=== PATIENT | female | born 1995 | race Two or more races ===

== ENCOUNTER → 2023-05-07 | Outpatient (CLI) | payer BC ==
[2023-05-07 13:56] LABS: HEMATOCRIT 37.3 % (36.0-47.0); HEMOGLOBIN 11.9 g/dl (12.0-15.5); MEAN CORPUSCULAR HEMOGLOBIN 23.7 pg (27.0-33.0); MEAN CORPUSCULAR HGB CONC 31.9 g/dl (32.0-36.5); MEAN CORPUSCULAR VOLUME 74.2 fl (80.0-96.0); PLATELET COUNT, AUTOMATED 326 10^3/uL (150-450); RED BLOOD COUNT 5.03 10^6/uL (4.00-5.40); WHITE BLOOD COUNT 8.2 10^3/uL (4.0-10.0)
[2023-05-07 14:19] LABS: TOTAL PROTEIN,RANDOM URINE 7.7 MG/DL (0.0-14.0)
[2023-05-07 14:26] LABS: URIC ACID 3.1 MG/DL (3.1-7.8)
[2023-05-07 14:28] LABS: LDH LACTATE DEHYDROGENASE 193 U/L (120-246)
[2023-05-07 14:29] LABS: ALT/SGPT 13 U/L (7.0-40); AST/SGOT 17 U/L (<34); CREATININE FOR GFR 0.57 MG/DL (0.55-1.30); GLOMERULAR FILTRATION RATE > 60.0 (>60)
[2023-05-07 14:36] LABS: CREATININE,RANDOM URINE 316.2 MG/DL
[2023-05-07 14:52] LABS: HIV 1&2 SCREEN NEGATIVE (NEGATIVE)
[2023-05-07 15:01] LABS: HEPATITIS C VIRUS ABY INDEX 0.06 INDEX (<0.8)
[2023-05-07 15:40] LABS: GC DNA AMPLIFICATION NEGATIVE (NEGATIVE)
== END ==
LOC: M PLALAB 10:54
PROVIDERS: ATTEND Obstetrics & Gynecology
DX: O09.811 Supervision of pregnancy resulting from assisted reproductive technology, first trimester (principal); Z3A.00 Weeks of gestation of pregnancy not specified

== ENCOUNTER → 2023-06-10 | Outpatient (REF) | payer BC | LOC: M SFHCWAGY 15:35 | PROVIDERS: ATTEND Specialist | DX: Z34.82 Encounter for supervision of other normal pregnancy, second trimester (principal) ==

== ENCOUNTER → 2023-07-02 | Outpatient (CLI) | payer BC | LOC: M WHC 12:03 | PROVIDERS: ATTEND Specialist | DX: Z34.82 Encounter for supervision of other normal pregnancy, second trimester (principal); Z3A.19 19 weeks gestation of pregnancy ==

== ENCOUNTER → 2023-07-29 | Outpatient (CLI) | payer BC | LOC: M WHC 07:49 | PROVIDERS: ATTEND Obstetrics & Gynecology | DX: Z36.2 Encounter for other antenatal screening follow-up (principal) ==

== ENCOUNTER → 2023-08-08 | Outpatient (REF) | payer BC ==
[2023-08-08 14:51] LABS: CHLAMYDIA DNA AMPLIFICATION NEGATIVE (NEGATIVE); GC DNA AMPLIFICATION NEGATIVE (NEGATIVE)
== END ==
LOC: M SFHCWAGY 12:43
PROVIDERS: ATTEND Advanced Practice Midwife
DX: Z34.92 Encounter for supervision of normal pregnancy, unspecified, second trimester (principal)

== ENCOUNTER → 2023-08-28 | Outpatient (CLI) | payer BC ==
[2023-08-28 10:25] LABS: HEMATOCRIT 31.5 % (36.0-47.0); HEMOGLOBIN 9.9 g/dl (12.0-15.5); MEAN CORPUSCULAR HEMOGLOBIN 23.8 pg (27.0-33.0); MEAN CORPUSCULAR HGB CONC 31.4 g/dl (32.0-36.5); MEAN CORPUSCULAR VOLUME 75.7 fl (80.0-96.0); PLATELET COUNT, AUTOMATED 308 10^3/uL (150-450); RED BLOOD COUNT 4.16 10^6/uL (4.00-5.40)
== END ==
LOC: M PLALAB 08:55
PROVIDERS: ATTEND Advanced Practice Midwife
DX: Z34.92 Encounter for supervision of normal pregnancy, unspecified, second trimester (principal)

== ENCOUNTER → 2023-09-29 | Outpatient (CLI) | payer BC | LOC: M WHC 09:31 | PROVIDERS: ATTEND Obstetrics & Gynecology | DX: Z36.2 Encounter for other antenatal screening follow-up (principal); O26.849 Uterine size-date discrepancy, unspecified trimester; Z3A.32 32 weeks gestation of pregnancy ==

== ENCOUNTER → 2023-10-20 | Outpatient (CLI) | payer BC ==
[2023-10-20 13:36] LABS: HEMATOCRIT 34.1 % (36.0-47.0); HEMOGLOBIN 10.6 g/dl (12.0-15.5); MEAN CORPUSCULAR HGB CONC 31.1 g/dl (32.0-36.5); MEAN CORPUSCULAR VOLUME 77.3 fl (80.0-96.0); PLATELET COUNT, AUTOMATED 275 10^3/uL (150-450); RED BLOOD COUNT 4.41 10^6/uL (4.00-5.40); WHITE BLOOD COUNT 8.9 10^3/uL (4.0-10.0)
== END ==
LOC: M PLALAB 11:33
PROVIDERS: ATTEND Obstetrics & Gynecology
DX: O99.013 Anemia complicating pregnancy, third trimester (principal)

== ENCOUNTER → 2023-10-30 | Outpatient (REF) | payer BC | LOC: M SFHCWAGY 12:17 | PROVIDERS: ATTEND Obstetrics & Gynecology | DX: Z36.85 Encounter for antenatal screening for Streptococcus B (principal); Z3A.36 36 weeks gestation of pregnancy ==

== ENCOUNTER → 2024-10-19 | Outpatient (REF) | payer BC, OTHER ==
[~2024-10-19] MED LIST: ASPI-655 PO; BENA25CA4 PO; FERR324T21 PO; PRENTAB9 PO; VALA500T5 PO
[2024-10-21 13:02] LABS: HPV APTIMA Not Detected (Not Detected)
== END ==
LOC: M SFHCWAGY 13:21
PROVIDERS: ATTEND Advanced Practice Midwife
DX: Z12.4 Encounter for screening for malignant neoplasm of cervix (principal)
CPT/HCPCS: 87624; G0123

== ENCOUNTER → 2025-02-07 | Outpatient (REF) | payer OTHER ==
[2025-02-10 14:38] LABS: RUBEOLA IgG ANTIBODY 291.0 AU/mL (>16.49)
== END ==
LOC: M LAB REF 17:29
PROVIDERS: ATTEND Student in an Organized Health Care Education/Training Program
DX: Z78.9 Other specified health status (principal)

== ENCOUNTER 2025-03-21 18:08 | Emergency (ER) | payer OTHER ==
[~2025-03-21] VITALS: Ht 162.6 cm; Wt 117.3 kg
[~2025-03-21 18:08] MED LIST changes: -ASPI-655 PO; +ASPI-737 PO
[2025-03-21 18:18] VITALS: BP 124/73; TEMP 97.6; O2SAT 100
[2025-03-21] MEDS ORDERED: SEMA1PEN4 SQ (18:32)
== END 2025-03-21 20:06 | disposition left against medical advice (07) ==
LOC: M ED 18:08
DX: Z53.21 Procedure and treatment not carried out due to patient leaving prior to being seen by health care provider (principal)

== ENCOUNTER → 2025-05-24 | Outpatient (CLI) | payer OTHER ==
[~2025-05-24] MED LIST changes: +SEMA1PEN4 SQ
[2025-05-24 14:26] LABS: BASO # 0.1 10^3/uL (0.0-0.2); BASO % 1.0 % (0.0-1.0); EOS # 0.1 10^3/uL (0.0-0.5); EOS % 1.0 % (0.0-3.0); LYMPH # 1.8 10^3/uL (1.5-5.0); LYMPH % 36.1 % (24.0-44.0); MONO # 0.4 10^3/uL (0.0-0.8); MONO % 8.4 % (2.0-8.0); NEUTROPHILS # 2.7 10^3/uL (1.5-8.5); NEUTROPHILS % 53.3 % (36.0-66.0); PLATELET COUNT, AUTOMATED 271 10^3/uL (150-450)
[2025-05-24 14:32] LABS: ALT/SGPT 22 U/L (7.0-40); AST/SGOT 21 U/L (<34); CALCIUM LEVEL 8.8 MG/DL (8.5-10.1); CARBON DIOXIDE LEVEL 26 MMOL/L (20-31); CHLORIDE LEVEL 107 MMOL/L (98-107); CHOLESTEROL LEVEL 173 MG/DL (<200); CHOLESTEROL RISK RATIO 3.33 (<5); CREATININE FOR GFR 0.62 MG/DL (0.55-1.30); GLOMERULAR FILTRATION RATE > 90.0 (>60); IRON (FE) 19 UG/DL (50-170); LDL CHOLESTEROL 103.7 MG/DL (<100); NON-HDL-C 121.1 MG/DL; PERCENT SATURATION 4.6 % (13.2-45.0); POTASSIUM SERUM 4.4 MMOL/L (3.5-5.1); SODIUM LEVEL 142 MMOL/L (136-145); TRIGLYCERIDES LEVEL 87 MG/DL (<150)
== END ==
LOC: M WUC 09:23
PROVIDERS: ATTEND Student in an Organized Health Care Education/Training Program
DX: Z00.00 Encounter for general adult medical examination without abnormal findings (principal); E61.1 Iron deficiency